=== PATIENT | female | born 1955 | race Caucasian/White ===

== ENCOUNTER → 2017-12-18 | Outpatient (CLI) | payer OTHER ==
[~2017-12-18] MED LIST: ASPI325EC PO; HYDACE5 PO; IBUP400 PO; MELO7.5 PO; Multi-Day Vita1 EACH PO; OXYACE5T PO; TRAM50 PO
[2017-12-18 16:27] LABS: BASOPHILS ABSOLUTE AUTO 0.04 K/mm3 (0.00-0.23); BASOPHILS PERCENT AUTO 1 % (0-2); EOSINOPHILS ABSOLUTE AUTO 0.06 K/mm3 (0.00-0.68); EOSINOPHILS PERCENT AUTO 1 % (0-6); Hematocrit 40.5 % (33.0-51.0); Hemoglobin 13.9 g/dL (11.5-16.0); IMMATURE GRAN ABSOLUTE AUTO 0.02 K/mm3 (0.00-0.10); IMMATURE GRAN PERCENT AUTO 0 % (0-1); LYMPHOCYTES ABSOLUTE AUTO 1.55 K/mm3 (0.84-5.20); LYMPHOCYTES PERCENT AUTO 19 % (21-46); MONOCYTES ABSOLUTE AUTO 0.54 K/mm3 (0.16-1.47); MONOCYTES PERCENT AUTO 7 % (4-13); Mean Corpuscular HGB Conc 34.3 g/dL (31.5-36.5); Mean Corpuscular Volume 87 fL (80-100); Mean Platelet Volume 8.7 fL (9.1-12.4); NEUTROPHILS ABSOLUTE AUTO 5.86 K/mm3 (1.96-9.15); NEUTROPHILS PERCENT AUTO 73 % (41-73); Platelet Count 488 K/mm3 (150-400); RDW Coefficient Variation 13.6 % (11.7-14.2); RDW Standard Deviation 43.1 fL (35.1-46.3); Red Blood Cell Count 4.64 M/mm3 (3.80-5.20); White Blood Cell Count 8.07 K/mm3 (4.00-11.30)
[2017-12-18 16:57] LABS: Alanine Aminotransfer (ALT/SGP 15 U/L (12-78); Albumin, Blood 3.7 g/dL (3.4-5.0); Alk Phos 118 U/L (40-126); Anion Gap 7 mmol/L (6-16); Aspartate Aminotrans (AST/SGOT 14 U/L (12-37); Bilirubin, Total 0.6 mg/dL (0.1-1.0); Blood Urea Nitrogen 6 mg/dL (8-24); CO2, Blood 28 mmol/L (21-32); Calcium, Blood 9.5 mg/dL (8.5-10.1); Chloride, Blood 102 mmol/L (98-108); Creatinine, Blood 0.75 mg/dL (0.40-1.00); Globulin, Blood 3.7 g/dL (2.2-4.0); Glomerular Filtration Rate >60 (60-); Glucose, Blood 112 mg/dL (70-99); Potassium, Blood 3.8 mmol/L (3.5-5.5); Sodium, Blood 137 mmol/L (136-145); Thyroid Stimulating Hormone 1.929 uIU/mL (0.360-4.800); Total Protein, Blood 7.4 g/dL (6.4-8.2)
== END | disposition home or self-care (01) ==
LOC: LAB SHORT 16:12 → LAB EV 16:12
PROVIDERS: Family Medicine
DX: R53.83 Other fatigue (principal)
CPT/HCPCS: 80053; 84443; 85025

== ENCOUNTER 2021-12-15 16:43 | Emergency (ER) | payer SELFPAY ==
[~2021-12-15] VITALS: Ht 160 cm; Wt 65.8 kg
== END 2021-12-15 20:58 | disposition home or self-care (01) ==
LOC: ER 16:43
DX: M16.12 Unilateral primary osteoarthritis, left hip (principal); M17.12 Unilateral primary osteoarthritis, left knee; M25.561 Pain in right knee; Z96.651 Presence of right artificial knee joint; Z79.82 Long term (current) use of aspirin; Z79.899 Other long term (current) drug therapy
CPT/HCPCS: 73502; 73562-LT; 73562-RT

== ENCOUNTER → 2024-05-04 | Outpatient (CLI) | payer MEDICARE ==
[2024-05-04 14:23] LABS: BASOPHILS ABSOLUTE AUTO 0.08 K/mm3 (0.00-0.23); BASOPHILS PERCENT AUTO 0 % (0-2); EOSINOPHILS ABSOLUTE AUTO 0.04 K/mm3 (0.00-0.68); EOSINOPHILS PERCENT AUTO 0 % (0-6); Hemoglobin 11.8 g/dL (11.5-16.0); IMMATURE GRAN ABSOLUTE AUTO 0.19 K/mm3 (0.00-0.10); IMMATURE GRAN PERCENT AUTO 1 % (0-1); LYMPHOCYTES PERCENT AUTO 6 % (21-46); MONOCYTES ABSOLUTE AUTO 1.12 K/mm3 (0.16-1.47); MONOCYTES PERCENT AUTO 5 % (4-13); Mean Corpuscular HGB Conc 33.7 g/dL (31.5-36.5); Mean Corpuscular Volume 83 fL (80-100); Mean Platelet Volume 8.4 fL (9.1-12.4); NEUTROPHILS ABSOLUTE AUTO 18.54 K/mm3 (1.96-9.15); NEUTROPHILS PERCENT AUTO 87 % (41-73); Platelet Count 918 K/mm3 (150-400); RDW Coefficient Variation 14.8 % (11.7-14.2); RDW Standard Deviation 44.8 fL (35.1-46.3); Red Blood Cell Count 4.21 M/mm3 (3.80-5.20); White Blood Cell Count 21.27 K/mm3 (4.00-11.30)
[2024-05-04 14:38] LABS: Albumin, Blood 2.3 g/dL (3.4-5.0); Albumin/Globulin Ratio 0.4 (0.8-1.8); Bilirubin, Total 0.4 mg/dL (0.1-1.0); Bun/Creatinine Ratio 7.6 (12.0-20.0); Calcium, Blood 8.8 mg/dL (8.5-10.1); Creatinine, Blood 0.79 mg/dL (0.40-1.00); Globulin, Blood 5.3 g/dL (2.2-4.0); Potassium, Blood 2.8 mmol/L (3.5-5.5); Total Protein, Blood 7.6 g/dL (6.4-8.2)
== END | disposition home or self-care (01) ==
LOC: LAB SHORT 14:17 → LAB 14:17
PROVIDERS: Chiropractor
DX: E86.0 Dehydration (principal)
CPT/HCPCS: 80053; 83690; 85025

== ENCOUNTER → 2024-05-05 | Outpatient (CLI) | payer MEDICARE ==
[2024-05-05 16:47] LABS: BASOPHILS ABSOLUTE AUTO 0.15 K/mm3 (0.00-0.23); BASOPHILS PERCENT AUTO 1 % (0-2); EOSINOPHILS ABSOLUTE AUTO 0.01 K/mm3 (0.00-0.68); EOSINOPHILS PERCENT AUTO 0 % (0-6); Hematocrit 33.1 % (33.0-51.0); Hemoglobin 11.3 g/dL (11.5-16.0); IMMATURE GRAN ABSOLUTE AUTO 0.27 K/mm3 (0.00-0.10); IMMATURE GRAN PERCENT AUTO 1 % (0-1); LYMPHOCYTES ABSOLUTE AUTO 1.41 K/mm3 (0.84-5.20); LYMPHOCYTES PERCENT AUTO 5 % (21-46); MONOCYTES ABSOLUTE AUTO 1.32 K/mm3 (0.16-1.47); MONOCYTES PERCENT AUTO 5 % (4-13); Mean Corpuscular HGB 28.3 pg (26.0-34.0); Mean Corpuscular HGB Conc 34.1 g/dL (31.5-36.5); Mean Corpuscular Volume 83 fL (80-100); Mean Platelet Volume 8.4 fL (9.1-12.4); NEUTROPHILS ABSOLUTE AUTO 26.02 K/mm3 (1.96-9.15); NEUTROPHILS PERCENT AUTO 89 % (41-73); Platelet Count 868 K/mm3 (150-400); RDW Coefficient Variation 14.7 % (11.7-14.2); RDW Standard Deviation 44.9 fL (35.1-46.3); White Blood Cell Count 29.18 K/mm3 (4.00-11.30)
[2024-05-05 16:51] LABS: Bun/Creatinine Ratio 6.7 (12.0-20.0); Creatinine, Blood 0.75 mg/dL (0.40-1.00); Magnesium, Blood 1.9 mg/dL (1.6-2.4); Potassium, Blood 3.2 mmol/L (3.5-5.5)
== END ==
LOC: LAB SHORT 16:42 → LAB 16:42
PROVIDERS: Chiropractor
DX: K57.32 Diverticulitis of large intestine without perforation or abscess without bleeding (principal)
CPT/HCPCS: 80048; 83735; 85025

== ENCOUNTER 2024-05-06 12:16 | Inpatient (IN) | payer MEDICARE ==
[~2024-05-06] VITALS: Ht 160 cm; Wt 61.7 kg
[2024-05-06 13:16] LABS: BASOPHILS ABSOLUTE AUTO 0.12 K/mm3 (0.00-0.23); BASOPHILS PERCENT AUTO 0 % (0-2); EOSINOPHILS ABSOLUTE AUTO 0.07 K/mm3 (0.00-0.68); EOSINOPHILS PERCENT AUTO 0 % (0-6); Hematocrit 32.4 % (33.0-51.0); Hemoglobin 11.3 g/dL (11.5-16.0); Mean Corpuscular HGB Conc 34.9 g/dL (31.5-36.5); Mean Corpuscular Volume 83 fL (80-100); Mean Platelet Volume 8.6 fL (9.1-12.4); Platelet Count 853 K/mm3 (150-400); RDW Standard Deviation 45.6 fL (35.1-46.3); White Blood Cell Count 30.17 K/mm3 (4.00-11.30)
[2024-05-06 13:23] LABS: IMMATURE GRAN PERCENT AUTO 2 % (0-1); LYMPHOCYTES PERCENT AUTO 7 % (21-46); MONOCYTES PERCENT AUTO 2 % (4-13); NEUTROPHILS ABSOLUTE AUTO 26.66 K/mm3 (1.96-9.15); NEUTROPHILS PERCENT AUTO 88 % (41-73)
[2024-05-06 13:24] LABS: IMMATURE GRAN ABSOLUTE AUTO 0.45 K/mm3 (0.00-0.10); LYMPHOCYTES ABSOLUTE AUTO 2.16 K/mm3 (0.84-5.20); MONOCYTES ABSOLUTE AUTO 0.71 K/mm3 (0.16-1.47)
[2024-05-06 13:46] LABS: Albumin, Blood 2.1 g/dL (3.4-5.0); Albumin/Globulin Ratio 0.4 (0.8-1.8); Bilirubin, Total 0.3 mg/dL (0.1-1.0); Bun/Creatinine Ratio 5.5 (12.0-20.0); Calcium, Blood 8.8 mg/dL (8.5-10.1); Creatinine, Blood 0.55 mg/dL (0.40-1.00); Globulin, Blood 5.1 g/dL (2.2-4.0); Total Protein, Blood 7.2 g/dL (6.4-8.2)
[2024-05-06] MEDS ORDERED: Piperacillin/Tazobactam Sod 4.5 GM in NS 100 ML IV ONE (15:55)
[2024-05-06] MEDS ORDERED: NS 1,000 ML IV SCH (15:55)
[2024-05-06] MEDS ORDERED: Ondansetron HCl 2 MG / ML 2ML Vial IV PRN (22:05)
[2024-05-06] MEDS ORDERED: OxyCODONE HCL 5 MG TAB PO PRN (22:05)
[2024-05-06] MEDS ORDERED: Lactated Ringer's 1,000 ML IV SCH (22:05)
[2024-05-06] MEDS ORDERED: Clarify Drug Order XX ONE (22:20)
[2024-05-06] MEDS ORDERED: Vancomycin HCL 1,500 MG in NS 250 ML IV ONE (22:30)
[2024-05-06] MEDS ORDERED: Potassium Chloride 20 MEQ/15 ML UDC PO ONE (23:00)
[2024-05-07 00:23] LABS: BASOPHILS ABSOLUTE AUTO 0.12 K/mm3 (0.00-0.23); BASOPHILS PERCENT AUTO 1 % (0-2); EOSINOPHILS ABSOLUTE AUTO 0.17 K/mm3 (0.00-0.68); EOSINOPHILS PERCENT AUTO 1 % (0-6); Hematocrit 28.7 % (33.0-51.0); Hemoglobin 9.7 g/dL (11.5-16.0); IMMATURE GRAN ABSOLUTE AUTO 0.48 K/mm3 (0.00-0.10); IMMATURE GRAN PERCENT AUTO 2 % (0-1); LYMPHOCYTES ABSOLUTE AUTO 2.63 K/mm3 (0.84-5.20); LYMPHOCYTES PERCENT AUTO 11 % (21-46); MONOCYTES ABSOLUTE AUTO 1.08 K/mm3 (0.16-1.47); MONOCYTES PERCENT AUTO 5 % (4-13); Mean Corpuscular HGB 28.4 pg (26.0-34.0); Mean Corpuscular HGB Conc 33.8 g/dL (31.5-36.5); Mean Corpuscular Volume 84 fL (80-100); Mean Platelet Volume 8.5 fL (9.1-12.4); NEUTROPHILS ABSOLUTE AUTO 19.04 K/mm3 (1.96-9.15); NEUTROPHILS PERCENT AUTO 81 % (41-73); Platelet Count 730 K/mm3 (150-400); RDW Standard Deviation 45.9 fL (35.1-46.3); Red Blood Cell Count 3.42 M/mm3 (3.80-5.20); White Blood Cell Count 23.52 K/mm3 (4.00-11.30)
[2024-05-07 00:40] LABS: International Normalized Ratio 1.93; Prothrombin Time Results 19.7 Sec (9.7-11.5)
[2024-05-07 00:50] LABS: Albumin, Blood 1.9 g/dL (3.4-5.0); Albumin/Globulin Ratio 0.4 (0.8-1.8); Bilirubin, Total 0.3 mg/dL (0.1-1.0); Bun/Creatinine Ratio 5.4 (12.0-20.0); Calcium, Blood 8.6 mg/dL (8.5-10.1); Creatinine, Blood 0.55 mg/dL (0.40-1.00); Globulin, Blood 4.3 g/dL (2.2-4.0); Magnesium, Blood 1.9 mg/dL (1.6-2.4); Potassium, Blood 3.1 mmol/L (3.5-5.5); Total Protein, Blood 6.2 g/dL (6.4-8.2)
[2024-05-07] MEDS ORDERED: Lactated Ringer's 1,000 ML IV ONE (01:57)
[2024-05-07] MEDS ORDERED: Potassium Chloride 20 MEQ TabCR PO ONE (08:00)
[2024-05-07] MEDS ORDERED: Lactobacil 2-S.Thermo-Bifido 1 1 Cap PO SCH (09:00)
[2024-05-07] MEDS ORDERED: Vancomycin HCL 1,000 MG in NS 250 ML IV SCH (11:00)
[2024-05-07 11:38] VITALS: BP 137/76
--- NOTE | 2024-05-07 13:50 | NUR ---
ADMISSION: REPORT RECEIVED FROM ED RN. PT TO UNIT AT ABOUT 1130. A/O, VSS. PT ABLE TO AMBULATE FROM GURNEY TO BED. PT DENIES PAIN OR NAUSEA AT THIS TIME. PT ORIENTED TO ROOM AND CALL LIGHT. PT KEPT NPO AT THIS TIME. IV ANTIBIOTICS STARTED AND IV FLUIDS. CALL LIGHT IN REACH
[2024-05-07] MEDS ORDERED: Potassium Phosphate Dibasic 30 MM in Dextrose 5% 500 ML IV STA (16:32)
[2024-05-07] MEDS ORDERED: NS 500 ML IV SCH (16:45)
--- NOTE | 2024-05-07 17:12 | NUR ---
SUMMARY: NO ACUTE CHANGE SINCE ADMISSION. VSS, A/O, INDEP IN ROOM. IV POTASSIUM PHOSPHATE INFUSING AT THIS TIME. IV ANTIBIOTICS ALSO INFUSED. PT REPORTS SMALL AMT VAGINAL DISCHARGE THAT IS CAMP IN COLOR. PT HAS OTHERWISE DENIED ANY SYMPTOMS, NO PAIN OR NAUSEA. TOLERATING CLEAR LIQ DIET. PER DR. HARRY, PT IS ACCEPTED AT [facility], AND ON A WAITING LIST FOR A BED. NO ACUTE CONCERNS AT THIS TIME. PT USING CALL LIGHT AND MAKES NEEDS KNOWN.
[2024-05-07 19:08] VITALS: BP 137/76
[2024-05-07 19:42] VITALS: BP 148/68
--- NOTE | 2024-05-07 21:03 | NUR ---
2100- REPORT CALLED TO BERT LAINEZ @ [facility].
--- NOTE | 2024-05-07 21:45 | NUR ---
PT TRANSFERRED TO [facility] VIA [facility] PER DR REQUEST FOR HIGHER LEVEL OF CARE/MEDICAL NECESSITY.
--- NOTE | 2024-05-07 21:58 | NUR ---
2145- PT TRANSFERED VIA AMBULANCE TO [facility].
[2024-05-07] MEDS ORDERED: Piperacillin/Tazobactam Sod 3.375 GM in NS 100 ML IV SCH (23:00)
== END 2024-05-07 21:45 | disposition short-term general hospital (02) | DRG 872 ==
LOC: ER 12:16 → ERHOLD 22:02 → SURS 05-07 11:16
PROVIDERS: Nurse Practitioner Acute Care; Physician Assistant; ADMIT Student in an Organized Health Care Education/Training Program
DX: A41.9 Sepsis, unspecified organism (principal); N82.4 Other female intestinal-genital tract fistulae; K57.20 Diverticulitis of large intestine with perforation and abscess without bleeding; E87.1 Hypo-osmolality and hyponatremia; E86.0 Dehydration; K21.9 Gastro-esophageal reflux disease without esophagitis; E87.6 Hypokalemia; Z96.651 Presence of right artificial knee joint
CPT/HCPCS: 36415; 74177; 80048; 80053; 83605; 83690; 83735; 85025; 85610; 87040; 96365; 99285-25; A9270; J2543; J3370; J7030; J7050; J7060; J7120; Q9967

== ENCOUNTER 2024-08-26 12:07 | Day surgery (SDC) | payer MEDICARE ==
[~2024-08-26] VITALS: Ht 157.5 cm; Wt 56.7 kg
[~2024-08-26 12:07] MED LIST changes: +Lactated Ringer's 1,000 ML IV ONE; +propofoL 50 ML IV ONE
[2024-08-26] MEDS ORDERED: Lactated Ringer's 1,000 ML IV ONE ×2 (13:15→13:21)
--- NOTE | 2024-08-26 13:49 | NUR ---
08/26/24 1349 [facility] 1300: DR CASTILLO NOTIFIED THAT PATIENT REPORTED VOMITING THIS MORNING BEFORE TAKING HER SECOND PREP AND THAT SHE DID NOT DO HER SECOND PREP BECAUSE SHE VOMITED AND SHE DID NOT CALL THE OFFICE TO LET THEM KNOW OR RECEIVE ANY OTHER INSTRUCTIONS. PER DR CASTILLO OK TO PROCEED.
[2024-08-26] MEDS ORDERED: propofoL 50 ML IV ONE (14:28)
[2024-08-26 15:11] VITALS: BP 125/70
--- NOTE | 2024-08-27 08:38 | NUR ---
08/27/24 0838 Gabriela Nguyen LATE ENTRY CHARTING TODAY 08/27/24 FOR YESTERDAY 08/26/24 BECAUSE RIGHT AFTER PROCEDURE ENDED THE COMPUTER CRASHED AND IT WAS UNABLE TO FIX THE ISSUE AND THE CHART WAS LOCKED AND UNABLE TO BE ACCESSED AND OPERATIVE CHARTING WAS LOST.
== END 2024-08-26 15:35 | disposition home or self-care (01) ==
LOC: ORSCSDS 12:07
PROVIDERS: Surgery
PROC: 3E0H8KZ Introduction of Other Diagnostic Substance into Lower GI, Via Natural or Artificial Opening Endoscopic (ICD-10-PCS; principal; 2024-08-26 13:30)
PROC: 0DBK8ZX Excision of Ascending Colon, Via Natural or Artificial Opening Endoscopic, Diagnostic (ICD-10-PCS; principal; 2024-08-26 13:30)
PROC: 0DBL8ZX Excision of Transverse Colon, Via Natural or Artificial Opening Endoscopic, Diagnostic (ICD-10-PCS; principal; 2024-08-26 13:30)
PROC: 0DBH8ZX Excision of Cecum, Via Natural or Artificial Opening Endoscopic, Diagnostic (ICD-10-PCS; principal; 2024-08-26 13:30)
DX: N82.4 Other female intestinal-genital tract fistulae (principal); D12.0 Benign neoplasm of cecum; D12.2 Benign neoplasm of ascending colon; D12.3 Benign neoplasm of transverse colon; K56.699 Other intestinal obstruction unspecified as to partial versus complete obstruction
CPT/HCPCS: 88305; J2704; J7120